=== PATIENT | female | born 1955 ===

== ENCOUNTER 2021-11-27 07:37 | Emergency (ER) | payer MEDICARE ==
[2021-11-27 08:20] VITALS: BP 104/68
--- NOTE | 2021-11-27 18:13 | Event Note ---
ED Screening Note ED Screening Note: pt presents for abd pain and back pain for one month states she has been taking gabapentin but pain is not improving states she saw Dr jorge WILDE and has an outpatient CT scheduled but states she could no longer take the pain she has been having intermittent n/v/d This initial assessment/diagnostic orders/clinical plan/treatment(s) is/are subject to change based on patients health status, clinical progression and re- assessment by fellow clinical providers in the ED. Further treatment and workup at subsequent clinical providers discretion. Patient/guardian urged not to elope from the ED as their condition may be serious if not clinically assessed and managed. Initial orders include: labs, urine, ct
[2021-11-27 19:28] LABS: Basophils # (Auto) 0.1 K/mm3 (0.0-0.1); Basophils % (Auto) 0.8 % (0.0-1.8); Eosinophils # (Auto) 0.2 K/mm3 (0.0-0.4); Eosinophils % (Auto) 2.9 % (0.0-4.3); Hematocrit 38.8 % (30.3-42.9); Hemoglobin 12.1 gm/dl (10.1-14.3); Lymphocytes # (Auto) 2.4 K/mm3 (1.2-5.4); Lymphocytes % (Auto) 33.7 % (13.4-35.0); Mean Corpuscular HGB Conc 31 % (30-34); Mean Corpuscular Volume 86 fl (79-97); Monocytes # (Auto) 0.6 K/mm3 (0.0-0.8); Monocytes % (Auto) 8.2 % (0.0-7.3); Platelet Count 243 K/mm3 (140-440); Red Blood Count 4.51 M/mm3 (3.65-5.03)
[2021-11-27 19:45] LABS: Alanine Aminotransferase 25 units/L (7-56); Albumin 4.3 g/dL (3.9-5); BUN/Creatinine Ratio 18; Blood Urea Nitrogen 11 mg/dL (7-17); Calcium 10.1 mg/dL (8.4-10.2); Hemolysis Index 23
[2021-11-27 20:43] LABS: Bacteria,Urine 3+ /HPF (Negative); Bilirubin,Urine NEG (Negative); Blood,Urine NEG (Negative); Color,Urine Yellow (Yellow); Mucus,Urine 2+ /HPF
[2021-11-27 21:00] LABS: WBC,Urine > 182.0 /HPF (0.0-6.0)
[2021-11-27] MEDS ORDERED: ONDANSETRON 4 MG/2 ML INJ IV ONE (22:23)
[2021-11-27] MEDS ORDERED: cefTRIAXone/NS 1 GM/50 ML 1 GM/50 ML BAG IV ONE (22:23)
[2021-11-27] MEDS ORDERED: SODIUM CHLORIDE 0.9% 1000 ML 1,000 ML IV ONE (22:23)
[2021-11-27] MEDS ORDERED: KETOROLAC 30 MG/1 ML INJ IV ONE (22:24)
--- NOTE | 2021-11-27 22:26 | Cat Scan Report ---
CT ABDOMEN AND PELVIS WITH CONTRAST INDICATION / CLINICAL INFORMATION: Pt complains of abdominal and lower back pain.. TECHNIQUE: Axial CT images were obtained through the abdomen and pelvis after IV contrast. All CT sc ans at this location are performed using CT dose reduction for ALARA by means of automated exposure c ontrol. COMPARISON: None available. FINDINGS: LOWER CHEST: No significant abnormality. LIVER: No significant abnormality. GALLBLADDER: No significant abnormality. PANCREAS: No significant abnormality. SPLEEN: No significant abnormality. ADRENALS: No significant abnormality. RIGHT KIDNEY / URETER: 3.2 cm cyst medial interpolar region right kidney. LEFT KIDNEY / URETER: No significant abnormality. STOMACH / SMALL BOWEL: No significant abnormality. COLON: No significant abnormality. APPENDIX: No significant abnormality. PERITONEUM: No free fluid, free air or organized collection. LYMPH NODES: Numerous enlarged lymph nodes within the upper abdomen retroperitoneal and small bowel m esenteric region with conglomerate mass extending from the retroperitoneal region in the yulia hepati s measuring approximately 7.5 x 3.8 cm in axial dimension. There are numerous other enlarged retroper itoneal lymph nodes measuring upwards of 2 to 3 cm in short axis diameter throughout the upper retrop eritoneum and aortocaval regions. AORTA / ARTERIES/ VEINS: Mild atherosclerotic calcification without acute abnormality. URINARY BLADDER: No significant abnormality. REPRODUCTIVE ORGANS: No significant abnormality. ADDITIONAL FINDINGS: None. SKELETAL SYSTEM: No significant abnormality. IMPRESSION: 1. Widespread adenopathy of the retroperitoneum as above extending into the yulia hepatis region and small bowel mesentery, suspicious for malignant lymphoproliferative disorder. Further evaluation wit h appropriate laboratory testing and soft tissue sampling is recommended. 2. No other acute abnormality within the abdomen or pelvis. Signer Name: Jimbo Wang MD Signed: 11/27/2021 10:22 PM Workstation Name: [id number]
[2021-11-28] MEDS ORDERED: FLUCONAZOLE 200 MG TAB PO ONE (00:05)
--- NOTE | 2021-11-28 01:22 | Emergency Department Report ---
ED General Adult HPI - General Chief complaint: Upper Respiratory Infection Stated complaint: STOMACH/ BACK PAIN Time Seen by Provider: 11/27/21 23:43 Source: patient Mode of arrival: Ambulatory Limitations: No Limitations - History of Present Illness Initial comments: pt presents for abd pain and back pain for one month, states she has been taking gabapentin but pain is not improving, states she saw Dr donya WILDE and has an outpatient CT scheduled but states she could no longer take the pain, she has been having intermittent n/v/d, pt it tolerating po intake at this time Severity scale (0 -10): 6 - Related Data Previous Rx's Medication Instructions Recorded Last Taken Type Ciprofloxacin HCl 500 mg PO BID 7 Days #14 11/28/21 Unknown Rx metroNIDAZOLE [Flagyl] 500 mg PO Q8HR 7 Days #21 tablet 11/28/21 Unknown Rx traMADoL [Ultram] 50 mg PO Q6HR PRN #12 tablet 11/28/21 Unknown Rx Allergies Allergy/AdvReac Type Severity Reaction Status Date / Time codeine Allergy Itching Verified 11/27/21 08:20 ED Review of Systems ROS: Stated complaint: STOMACH/ BACK PAIN Other details as noted in HPI Constitutional: denies: chills, fever Eyes: denies: eye pain, eye discharge, vision change ENT: denies: ear pain, throat pain Respiratory: denies: cough, shortness of breath, wheezing Cardiovascular: denies: chest pain, palpitations Endocrine: no symptoms reported Gastrointestinal: abdominal pain, nausea, vomiting, diarrhea. denies: constipation, hematemesis, melena, hematochezia Genitourinary: urgency, dysuria, discharge. denies: hematuria Musculoskeletal: denies: back pain, joint swelling, arthralgia Skin: denies: rash, lesions Neurological: denies: headache, weakness, paresthesias, vertigo Psychiatric: denies: anxiety, depression Hematological/Lymphatic: denies: easy bleeding, easy bruising ED Past Medical Hx - Medications Home Medications: Home Medications Medication Instructions Recorded Confirmed Last Taken Type Ciprofloxacin HCl 500 mg PO BID 7 Days #14 11/28/21 Unknown Rx metroNIDAZOLE [Flagyl] 500 mg PO Q8HR 7 Days #21 tablet 11/28/21 Unknown Rx traMADoL [Ultram] 50 mg PO Q6HR PRN #12 tablet 11/28/21 Unknown Rx ED Physical Exam - General Limitations: No Limitations General appearance: alert, in no apparent distress - Head Head exam: Present: atraumatic, normocephalic - Eye Eye exam: Present: normal appearance, EOMI Pupils: Present: normal accommodation - ENT ENT exam: Present: mucous membranes moist - Neck Neck exam: Present: normal inspection, full ROM. Absent: tenderness - Respiratory Respiratory exam: Present: normal lung sounds bilaterally. Absent: respiratory distress, wheezes, stridor, chest wall tenderness - Cardiovascular Cardiovascular Exam: Present: regular rate, normal rhythm, normal heart sounds. Absent: systolic murmur, diastolic murmur, rubs, gallop - GI/Abdominal GI/Abdominal exam: Present: soft, normal bowel sounds. Absent: distended, te nderness, guarding, rebound, rigid, bruit, hernia - Rectal Rectal exam: Present: deferred - Extremities Exam Extremities exam: Present: normal inspection, full ROM, normal capillary refill. Absent: tenderness - Back Exam Back exam: Present: normal inspection, full ROM. Absent: CVA tenderness (R), CVA tenderness (L) - Neurological Exam Neurological exam: Present: alert, oriented X3, CN II-XII intact - Expanded Neurological Exam Expanded Patient oriented to: Present: person, place, time Speech: Present: fluid speech Motor strength exam: RUE: 5, LUE: 5, RLE: 5, LLE: 5 Best Eye Response (Myah): (4) open spontaneously Best Motor Response (Myah): (6) obeys commands Best Verbal Response (Myah): (5) oriented Myah Total: 15 - Psychiatric Psychiatric exam: Present: normal affect, normal mood - Skin Skin exam: Present: warm, dry, intact, normal color. Absent: rash ED Course Vital Signs 11/27/21 08:20 Temperature 98.8 F Pulse Rate 96 H Respiratory 16 Rate Blood Pressure 104/68 [Right] O2 Sat by Pulse 97 Oximetry ED Medical Decision Making - Lab Data Result diagrams: 11/27/21 18:48 11/27/21 18:48 Labs 11/27/21 11/27/21 11/27/21 18:48 18:48 Unknown WBC 7.1 RBC 4.51 Hgb 12.1 Hct 38.8 MCV 86 MCH 27 L MCHC 31 RDW 14.0 Plt Count 243 Lymph % (Auto) 33.7 [place] % (Auto) 8.2 H Eos % (Auto) 2.9 Baso % (Auto) 0.8 Lymph # (Auto) 2.4 [place] # (Auto) 0.6 Eos # (Auto) 0.2 Baso # (Auto) 0.1 Seg Neutrophils % 54.4 Seg Neutrophils # 3.9 Sodium 140 Potassium 3.9 Chloride 103.4 Carbon Dioxide 24 Anion Gap 17 BUN 11 Creatinine 0.6 Estimated GFR > 60 BUN/Creatinine Ratio 18 Glucose 128 H Calcium 10.1 Total Bilirubin 0.20 AST 25 ALT 25 Alkaline Phosphatase 81 Total Protein 8.3 H Albumin 4.3 Albumin/Globulin Ratio 1.1 Lipase 28 Urine Color Yellow Urine Turbidity Cloudy Urine pH 5.0 Ur Specific [place] 1.018 Urine Protein 30 mg/dl Urine Glucose (UA) Neg Urine Ketones Neg Urine Blood Neg Urine Nitrite Pos Urine Bilirubin Neg Urine Urobilinogen 2.0 Ur Leukocyte Esterase Lg Urine WBC (Auto) > 182.0 H Urine RBC (Auto) 11.0 U Epithel Cells (Auto) 17.0 H Urine Bacteria (Auto) 3+ Urine WBC Clumps 2+ Urine Mucus 2+ Urine Yeast (Budding) Few - Radiology Data Radiology results: report reviewed, image reviewed CT ABDOMEN AND PELVIS WITH CONTRAST INDICATION / CLINICAL INFORMATION: Pt complains of abdominal and lower back pain.. TECHNIQUE: Axial CT images were obtained through the abdomen and pelvis after IV contrast. All CT scans at this location are performed using CT dose reduction for ALARA by means of automated exposure control. COMPARISON: None available. FINDINGS: LOWER CHEST: No significant abnormality. LIVER: No significant abnormality. GALLBLADDER: No significant abnormality. PANCREAS: No significant abnormality. SPLEEN: No significant abnormality. ADRENALS: No significant abnormality. RIGHT KIDNEY / URETER: 3.2 cm cyst medial interpolar region right kidney. LEFT KIDNEY / URETER: No significant abnormality. STOMACH / SMALL BOWEL: No significant abnormality. COLON: No significant abnormality. APPENDIX: No significant abnormality. PERITONEUM: No free fluid, free air or organized collection. LYMPH NODES: Numerous enlarged lymph nodes within the upper abdomen retroperitoneal and small bowel mesenteric region with conglomerate mass extending from the retroperitoneal region in the yulia hepatis measuring approximately 7.5 x 3.8 cm in axial dimension. There are numerous other enlarged retroperitoneal lymph nodes measuring upwards of 2 to 3 cm in short axis diameter throughout the upper retroperitoneum and aortocaval regions. AORTA / ARTERIES/ VEINS: Mild atherosclerotic calcification without acute abnormality. URINARY BLADDER: No significant abnormality. REPRODUCTIVE ORGANS: No significant abnormality. ADDITIONAL FINDINGS: None. SKELETAL SYSTEM: No significant abnormality. IMPRESSION: 1. Widespread adenopathy of the retroperitoneum as above extending into the yulia hepatis region and small bowel mesentery, suspicious for malignant lymphoproliferative disorder. Further evaluation with appropriate laboratory testing and soft tissue sampling is recommended. 2. No other acute abnormality within the abdomen or pelvis. Signer Name: Jimbo Wang MD Signed: 11/27/2021 10:22 PM Workstation Name: [id number] - Medical Decision Making CT abdomen pelvis broad spread adenopathy concerning for malignancy, patient is currently being followed and worked up by GI for same. Follow-up with Dr. Donya WILDE in 1 to 2 days. UA noted for leukocytes WBCs moderate yeast patient treated for UTI CT not significant for renal stones or gallstones. Patient treated with antibiotics and IV fluids in ED patient advises feeling much better. Patient will follow-up with GI in 1 to 2 days. Will be DC'd home with prescriptions. Pain is currently improved patient continues to tolerate p.o. intake at this time without nausea vomiting. Patient will be DC'd in stable condition at this time. Patient declines smoking cessation at this time . Critical care attestation.: If time is entered above; I have spent that time in minutes in the direct care of this critically ill patient, excluding procedure time. ED Disposition Clinical Impression: UTI (urinary tract infection) Qualifiers: Urinary tract infection type: acute cystitis Hematuria presence: without hematuria Qualified Code(s): N30.00 - Acute cystitis without hematuria Abdominal pain Qualifiers: Abdominal location: generalized Qualified Code(s): R10.84 - Generalized abdominal pain Disposition: 01 HOME / SELF CARE / HOMELESS Is pt being admited?: No Does the pt Need Aspirin: No Condition: Stable Instructions: Abdominal Pain, Adult, [id number], Urinary Tract Infection, Adult, [id number] Additional Instructions: Follow-up with [facility] Dr. Pelayo call tomorrow to confirm upcoming appointment. Follow-up with your primary care doctor in 2 to 3 days. Return to emergency department should symptoms worsen or unable to tolerate intake by mouth. Prescriptions: Ciprofloxacin HCl 500 mg PO BID 7 Days #14 metroNIDAZOLE [Flagyl] 500 mg PO Q8HR 7 Days #21 tablet traMADoL [Ultram] 50 mg PO Q6HR PRN #12 tablet PRN Reason: Pain Referrals: AYDE PELAYO MD [Staff Physician] - 3-5 Days ELLEN YA MD [Staff Physician] - 3-5 Days Forms: Work/School Release Form(ED) Time of Disposition: 01:49
== END 2021-11-28 02:00 | disposition home or self-care (01) ==
LOC: ED 07:37
DX: N39.0 Urinary tract infection, site not specified (principal); R10.9 Unspecified abdominal pain; Z88.5 Allergy status to narcotic agent
CPT/HCPCS: 36415; 74177; 80053; 81001; 83690; 85025; 96365; 96375; 99284; J0696; J1885; J2405; J7030; Q9967; Q0162

== ENCOUNTER 2021-12-21 18:27 | Emergency (ER) | payer MEDICAID ==
[2021-12-21] MEDS ORDERED: HYDROmorphone 1 MG/1 ML INJ IV ONE (19:17)
[2021-12-21] MEDS ORDERED: SODIUM CHLORIDE 0.9% 1000 ML 1,000 ML IV ONE (19:17)
[2021-12-21] MEDS ORDERED: ONDANSETRON 4 MG/2 ML INJ IV ONE (19:18)
--- NOTE | 2021-12-21 19:21 | Emergency Department Report ---
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 The patient reports that she has had generalized abdominal pain which is constant since September 2020. She says that last night she developed nausea and vomiting and threw up her prescribed morphine. She also reports that she has had some diarrhea which she describes as watery and black. She does say she took Pepto-Bismol. She says she is currently waiting to receive authorization for biopsy of her retroperitoneal mass. There are no known aggravating or alleviating factors. She has not tried anything for her symptoms. She denies any associated fever/chills, headache, vision change, neck pain, chest pain, cough, back pain, dysuria, frequency, focal weakness, sensory changes, or any other complaints. ED Past Medical Hx - Past Medical History Previous Medical History?: Yes Hx Hypertension: Yes Hx Diabetes: Yes Additional medical history: Retroperitoneal mass - Medications Home Medications: Home Medications Medication Instructions Recorded Confirmed Last Taken Type Ciprofloxacin HCl 500 mg PO BID 7 Days #14 11/28/21 Unknown Rx metroNIDAZOLE [Flagyl] 500 mg PO Q8HR 7 Days #21 tablet 11/28/21 Unknown Rx traMADoL [Ultram] 50 mg PO Q6HR PRN #12 tablet 11/28/21 Unknown Rx Ondansetron [Zofran Odt] 4 mg PO Q8HR PRN #20 tab.rapdis 12/21/21 Unknown Rx ED Review of Systems ROS: Stated complaint: ABDOMINAL PAIN, VOMITING AND DIARRHEA X 1 WEEK Other details as noted in HPI Comment: All other systems reviewed and negative Constitutional: denies: chills, fever Eyes: denies: eye pain, vision change ENT: denies: throat pain, congestion Respiratory: denies: cough, shortness of breath Cardiovascular: denies: chest pain, palpitations Gastrointestinal: abdominal pain, nausea, vomiting, diarrhea Genitourinary: denies: dysuria, frequency Musculoskeletal: denies: back pain, arthralgia Skin: denies: rash, lesions Neurological: denies: headache, weakness, numbness Hematological/Lymphatic: denies: easy bleeding Physical Exam - Physical Exam Vital Signs: Vital Signs 12/21/21 18:50 Temperature 98.2 F Pulse Rate 91 H Respiratory 181 H Rate Blood Pressure 152/98 [Left] O2 Sat by Pulse 96 Oximetry Physical Exam: GENERAL: Well developed and well nourished. In mild distress secondary to pain HEAD: Normocephalic. No obvious signs of trauma. ENT: Dry mucous membranes. EYES: Extraocular movements are intact. Pupils are equal round and reactive to light bilaterally NECK: Supple. Full ROM is intact. Trachea is midline. LUNGS: Nonlabored breathing. Equal chest rise bilaterally. Clear to auscultation bilaterally. CARDIOVASCULAR: Regular rate and rhythm. No murmurs or rubs. VASCULAR: Cap refill < 2 seconds. 1+ pitting edema bilaterally. ABDOMEN: Abdomen is distended but soft. There is tenderness to palpation of the left upper quadrant and left lower quadrant without guarding or rebound tenderness. SKIN: Skin is warm and dry NEURO: Patient is awake, alert, and oriented. apprise counselor II-XII grossly intact. No focal deficits. Normal motor and sensory exam throughout. Normal speech. MUSCULOSKELETAL: No obvious deformities. No significant tenderness. Normal ROM throughout. BACK/SPINE: No midline tenderness or step-offs of the C/T/L spine. Left CVA tenderness ED Course Vital Signs 12/21/21 18:50 Temperature 98.2 F Pulse Rate 91 H Respiratory 181 H Rate Blood Pressure 152/98 [Left] O2 Sat by Pulse 96 Oximetry ED Medical Decision Making - Lab Data Result diagrams: 12/21/21 19:27 12/21/21 19:27 Lab Results 12/21/21 12/21/21 12/21/21 Range/Units 19:27 19:27 19:27 WBC 7.1 (4.5-11.0) K/mm3 RBC 5.04 H (3.65-5.03) M/mm3 Hgb 13.2 (10.1-14.3) gm/dl Hct 42.8 (30.3-42.9) % MCV 85 (79-97) fl MCH 26 L (28-32) pg MCHC 31 (30-34) % RDW 14.0 (13.2-15.2) % Plt Count 283 (140-440) K/mm3 Lymph % (Auto) 23.6 (13.4-35.0) % [place] % (Auto) 6.5 (0.0-7.3) % Eos % (Auto) 1.8 (0.0-4.3) % Baso % (Auto) 0.1 (0.0-1.8) % Lymph # (Auto) 1.7 (1.2-5.4) K/mm3 [place] # (Auto) 0.5 (0.0-0.8) K/mm3 Eos # (Auto) 0.1 (0.0-0.4) K/mm3 Baso # (Auto) 0.0 (0.0-0.1) K/mm3 Seg Neutrophils % 68.0 (40.0-70.0) % Seg Neutrophils # 4.8 (1.8-7.7) K/mm3 PT 14.4 (12.2-14.9) Sec. INR 1.01 (0.87-1.13) APTT 27.5 (24.2-36.6) Sec. Sodium 137 (137-145) mmol/L Potassium 3.9 (3.6-5.0) mmol/L Chloride 99.2 (98-107) mmol/L Carbon Dioxide 23 (22-30) mmol/L Anion Gap 19 mmol/L BUN 6 L (7-17) mg/dL Creatinine 0.7 (0.6-1.2) mg/dL Estimated GFR > 60 ml/min BUN/Creatinine Ratio 9 % Glucose 105 H (65-100) mg/dL Calcium 10.5 H (8.4-10.2) mg/dL Magnesium (1.7-2.3) mg/dL Total Bilirubin 0.50 (0.1-1.2) mg/dL Direct Bilirubin < 0.2 (0-0.2) mg/dL Indirect Bilirubin 0.3 mg/dL AST 34 (5-40) units/L ALT 15 (7-56) units/L Alkaline Phosphatase 70 (35-129) units/L Troponin T (0.00-0.029) ng/mL NT-Pro-B Natriuret Pep (0-900) pg/mL Total Protein 9.5 H (6.3-8.2) g/dL Albumin 4.6 (3.9-5) g/dL Albumin/Globulin Ratio 0.9 % Lipase 17 (13-60) units/L Urine Color (Yellow) Urine Turbidity (Clear) Urine pH (5.0-7.0) Ur Specific [place] (1.003-1.030) Urine Protein (Negative) mg/dL Urine Glucose (UA) (Negative) mg/dL Urine Ketones (Negative) mg/dL Urine Blood (Negative) Urine Nitrite (Negative) Urine Bilirubin (Negative) Urine Urobilinogen (<2.0) mg/dL Ur Leukocyte Esterase (Negative) Urine WBC (Auto) (0.0-6.0) /HPF Urine RBC (Auto) (0.0-6.0) /HPF 12/21/21 12/21/21 Range/Units 19:27 20:14 WBC (4.5-11.0) K/mm3 RBC (3.65-5.03) M/mm3 Hgb (10.1-14.3) gm/dl Hct (30.3-42.9) % MCV (79-97) fl MCH (28-32) pg MCHC (30-34) % RDW (13.2-15.2) % Plt Count (140-440) K/mm3 Lymph % (Auto) (13.4-35.0) % [place] % (Auto) (0.0-7.3) % Eos % (Auto) (0.0-4.3) % Baso % (Auto) (0.0-1.8) % Lymph # (Auto) (1.2-5.4) K/mm3 [place] # (Auto) (0.0-0.8) K/mm3 Eos # (Auto) (0.0-0.4) K/mm3 Baso # (Auto) (0.0-0.1) K/mm3 Seg Neutrophils % (40.0-70.0) % Seg Neutrophils # (1.8-7.7) K/mm3 PT (12.2-14.9) Sec. INR (0.87-1.13) APTT (24.2-36.6) Sec. Sodium (137-145) mmol/L Potassium (3.6-5.0) mmol/L Chloride (98-107) mmol/L Carbon Dioxide (22-30) mmol/L Anion Gap mmol/L BUN (7-17) mg/dL Creatinine (0.6-1.2) mg/dL Estimated GFR ml/min BUN/Creatinine Ratio % Glucose (65-100) mg/dL Calcium (8.4-10.2) mg/dL Magnesium 1.60 L (1.7-2.3) mg/dL Total Bilirubin (0.1-1.2) mg/dL Direct Bilirubin (0-0.2) mg/dL Indirect Bilirubin mg/dL AST (5-40) units/L ALT (7-56) units/L Alkaline Phosphatase (35-129) units/L Troponin T < 0.010 (0.00-0.029) ng/mL NT-Pro-B Natriuret Pep 331.2 (0-900) pg/mL Total Protein (6.3-8.2) g/dL Albumin (3.9-5) g/dL Albumin/Globulin Ratio % Lipase (13-60) units/L Urine Color Yellow (Yellow) Urine Turbidity Slightly-cloudy (Clear) Urine pH 6.0 (5.0-7.0) Ur Specific [place] 1.018 (1.003-1.030) Urine Protein >500 (Negative) mg/dL Urine Glucose (UA) Neg (Negative) mg/dL Urine Ketones Tr (Negative) mg/dL Urine Blood Neg (Negative) Urine Nitrite Neg (Negative) Urine Bilirubin Neg (Negative) Urine Urobilinogen < 2.0 (<2.0) mg/dL Ur Leukocyte Esterase Sm (Negative) Urine WBC (Auto) < 1.0 (0.0-6.0) /HPF Urine RBC (Auto) < 1.0 (0.0-6.0) /HPF - EKG Data -: EKG Interpreted by Pr - EKG Data 12/21/21 23:45 Normal sinus rhythm. Left axis deviation. Normal intervals. No ectopy. Inverted T waves noted in leads V1 through V3. No significant ST segment or T wave abnormalities. 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 Patient has had chronic abdominal pain but the nausea and vomiting developed last night. She also reports diarrhea which is watery and black but admits to taking Pepto-Bismol. She has no other complaints. She is afebrile with normal vital signs. On physical examination she is in mild distress secondary to pain. She has dry mucous membranes. Her abdomen is distended with tenderness to palpation of the left upper and lower quadrants without guarding or rebound. She has left CVA tenderness. We will perform broad work-up with a full set of labs, EKG, chest x-ray, and CT of the abdomen pelvis to assess for evidence of obstruction versus colitis versus diverticulitis versus pancreatitis versus other intra-abdominal abnormality to explain the patient's presentation. We will give 1 L of IV fluids and Dilaudid/Zofran and reassess. Labs have resulted and reveal no significant leukocytosis or anemia. Creatinine is within normal range and there are no significant electrolyte abnormalities. Troponin is negative. BNP is normal. Lipase is normal. UA shows no evidence of infection. Chest x-ray shows no acute abnormalities. On repeat assessment, the patient is resting comfortably in the bed. She reports dramatic improvement in her pain and nausea. CT of the abdomen pelvis reveals previously seen retroperitoneal mass without acute findings or change. On repeat assessment again, the patient remains with symptoms improved. I discussed with the patient that she should follow-up with her primary care doctor over the next several days. I instructed her to drink plenty of fluids and will prescribe Zofran for nausea. I encouraged her to return to the emergency department should she develop significantly worsening symptoms, inabi lity to tolerate food or liquid by mouth, or for any other new health concerns. The patient expressed understanding and agreement with this plan of care Critical care attestation.: If time is entered above; I have spent that time in minutes in the direct care of this critically ill patient, excluding procedure time. ED Disposition Clinical Impression: Retroperitoneal mass, Nausea and vomiting, Left sided abdominal pain Disposition: 01 HOME / SELF CARE / HOMELESS Is pt being admited?: No Instructions: Nausea and Vomiting, Adult, Pain Without a Known Cause, Abdominal Pain (ED) Additional Instructions: Please follow-up closely with your primary care doctor regarding pain management. Return to the emergency department for any new health concerns. Prescriptions: Ondansetron [Zofran Odt] 4 mg PO Q8HR PRN #20 tab.rapdis PRN Reason: Nausea And Vomiting Referrals: OMAR AVILES MD [Primary Care Provider] - 3-5 Days
[2021-12-21 19:44] LABS: Basophils % (Auto) 0.1 % (0.0-1.8); Eosinophils # (Auto) 0.1 K/mm3 (0.0-0.4); Eosinophils % (Auto) 1.8 % (0.0-4.3); Lymphocytes # (Auto) 1.7 K/mm3 (1.2-5.4); Lymphocytes % (Auto) 23.6 % (13.4-35.0); Mean Corpuscular HGB Conc 31 % (30-34); Mean Corpuscular Volume 85 fl (79-97); Monocytes # (Auto) 0.5 K/mm3 (0.0-0.8); Monocytes % (Auto) 6.5 % (0.0-7.3); Platelet Count 283 K/mm3 (140-440); Red Blood Count 5.04 M/mm3 (3.65-5.03)
[2021-12-21 19:48] LABS: Hematocrit 42.8 % (30.3-42.9); Hemoglobin 13.2 gm/dl (10.1-14.3)
--- NOTE | 2021-12-21 19:53 | XRay Report ---
XR chest 1V ap INDICATION / CLINICAL INFORMATION: n.v COMPARISON: None available. FINDINGS: SUPPORT DEVICES: None. HEART / MEDIASTINUM: No significant abnormality. LUNGS / PLEURA: Lungs are clear. Costophrenic sulci are sharp. No pneumothorax. ADDITIONAL FINDINGS: No significant additional findings. IMPRESSION: 1. No acute findings. Signer Name: Aron Sanchez MD Signed: 12/21/2021 7:48 PM Workstation Name: [id number]
[2021-12-21 19:56] LABS: INR 1.01 (0.87-1.13)
[2021-12-21 19:57] LABS: Partial Thromboplastin Time 27.5 Sec. (24.2-36.6)
[2021-12-21 20:14] LABS: Alanine Aminotransferase 15 units/L (7-56); Albumin 4.6 g/dL (3.9-5); Blood Urea Nitrogen 6 mg/dL (7-17); Calcium 10.5 mg/dL (8.4-10.2); Hemolysis Index 6
[2021-12-21 20:16] LABS: BUN/Creatinine Ratio 9; Bilirubin,Direct < 0.2 mg/dL (0-0.2)
[2021-12-21 20:33] LABS: Bilirubin,Urine NEG (Negative); Blood,Urine NEG (Negative); Color,Urine Yellow (Yellow); RBC,Urine < 1.0 /HPF (0.0-6.0); Urobilinogen,Urine < 2.0 mg/dL (<2.0)
[2021-12-21 20:34] LABS: Protein,Urine >500 mg/dL (Negative)
[2021-12-21 20:36] LABS: WBC,Urine < 1.0 /HPF (0.0-6.0)
[2021-12-22 00:33] VITALS: BP 142/78
--- NOTE | 2021-12-23 14:28 | Electrocardiograph Report ---
[facility] Test Date: 2021-12-21 Test Time: 19:41:52 Pat Name: CLAUDIA SWENSON Department: Room: Gender: F Vending Technician: ERIKA : 1955 Requested By: SHAHRIAR ORTIZ Order Number: [id number] Reading MD: Shantanu Salvador Measurements Intervals [place] Rate: 71 P: 57 SD: 151 QRS: -19 QRSD: 92 T: 76 QT: 419 QTc: 456 Interpretive Statements Sinus rhythm Left ventricular hypertrophy Abnormal T, consider ischemia, anterior leads No previous ECG available for comparison Electronically Signed On 12-23-2021 14:27:51 EST by Shantanu Salvador
== END 2021-12-22 00:37 | disposition home or self-care (01) ==
LOC: ED 18:27
DX: K68.9 Other disorders of retroperitoneum (principal); R11.2 Nausea with vomiting, unspecified; I10 Essential (primary) hypertension; E11.9 Type 2 diabetes mellitus without complications; Z88.5 Allergy status to narcotic agent; Z79.899 Other long term (current) drug therapy
CPT/HCPCS: 36415; 71045; 74177; 80048; 80076; 81001; 82271; 83690; 83735; 83880; 84484; 85025; 85610; 85730; 93005; 93010; 96361; 96374; 96375; 99285; J1170; J2405; J7030; Q9967; Q0162